=== PATIENT | female | born 1990 | race Caucasian/White ===

== ENCOUNTER 2018-07-16 17:22 | Emergency (ER) | payer SELFPAY ==
--- NOTE | 2018-07-16 19:38 | RAD ---
LEFT KNEE FOUR VIEWS: INDICATIONS: The patient states a sewing needle is stuck in the left lower extremity. FINDINGS: The knee shows mild degenerative change. There is no fracture or acute osseous abnormality. There i s no evidence of radiopaque foreign body identified. IMPRESSION: No acute abnormality identified. POS: [facility]
== END 2018-07-16 19:36 | disposition home or self-care (01) ==
LOC: ERS 17:22
DX: S50.852A Superficial foreign body of left forearm, initial encounter (principal)

== ENCOUNTER 2019-01-17 09:01 | Outpatient (CLI) | payer OTHER | END 2019-01-17 09:02 | disposition home or self-care (01) | LOC: DTY/OP 09:01 | PROVIDERS: ATTEND Specialist | DX: Z01.818 Encounter for other preprocedural examination (principal); E66.01 Morbid (severe) obesity due to excess calories | CPT/HCPCS: 97802 ==

== ENCOUNTER 2019-02-15 13:05 | Outpatient (CLI) | payer OTHER | END 2019-02-15 13:06 | disposition home or self-care (01) | LOC: DTY/OP 13:05 | PROVIDERS: ATTEND Specialist | DX: Z01.818 Encounter for other preprocedural examination (principal); E66.01 Morbid (severe) obesity due to excess calories | CPT/HCPCS: 97802 ==

== ENCOUNTER 2019-03-20 11:43 | Outpatient (CLI) | payer OTHER | END 2019-03-20 11:44 | disposition home or self-care (01) | LOC: DTY/OP 11:43 | PROVIDERS: ATTEND Specialist | DX: Z01.818 Encounter for other preprocedural examination (principal); E66.01 Morbid (severe) obesity due to excess calories | CPT/HCPCS: 97802 ==

== ENCOUNTER 2019-04-19 12:53 | Outpatient (CLI) | payer OTHER | END 2019-04-19 12:54 | disposition home or self-care (01) | LOC: DTY/OP 12:53 | PROVIDERS: ATTEND Specialist | DX: Z01.818 Encounter for other preprocedural examination (principal); E66.01 Morbid (severe) obesity due to excess calories | CPT/HCPCS: 97802 ==

== ENCOUNTER 2020-04-17 11:28 | Emergency (ER) | payer OTHER ==
[2020-04-17 17:39] LABS: SARS-CoV-2 MS2 Positive; SARS-CoV-2 N Gene Negative; SARS-CoV-2 S Gene Negative; SARS-CoV-2 orf1ab Negative
== END 2020-04-17 12:21 | disposition home or self-care (01) ==
LOC: ERS 11:28
DX: Z20.828 Contact with and (suspected) exposure to other viral communicable diseases (principal); E66.9 Obesity, unspecified
CPT/HCPCS: 87635; 99283; U0003